=== PATIENT | female | born 1985 | race Two or more races ===

== ENCOUNTER 2018-02-01 07:12 | Inpatient (IN) | payer SELFPAY ==
[~2018-02-01] VITALS: Ht 160 cm; Wt 51.1 kg
[2018-02-01] MEDS ORDERED: PROPRANOLOL HCL10 MG PO (07:30)
[2018-02-01] MEDS ORDERED: INDERAL LA60 MG PO (07:31)
--- NOTE | 2018-02-01 11:40 | NUR ---
PT TO ROOM 123 AT THIS TIME. PT UP TO AMBUALTE INTO BATHROOM. TOELRATED ACTIVITY WELL. PT ALERT AND ORIENTED. SHE REPORTS MILD DIZZINESS WITH AMBULATION
[2018-02-01] MEDS ORDERED: REMERON15 MG PO (12:22)
--- NOTE | 2018-02-01 13:59 | NUR ---
PT RESTING IN BED WATCHING TV. VISITNG WITH FAMILY. REPORTS PAIN 09/03
--- NOTE | 2018-02-01 16:26 | NUR ---
PATIENT RESTING IN BED, FAMILY IN ROOM. CALL LIGHT IN REACH, NO OTHER NEEDS AT THIS TIME.
--- NOTE | 2018-02-01 16:54 | NUR ---
PT Kristina ADMIT THIS AM. SHE REPORTED PAIN 3/10 ON ADMISSION. WITH ADMISSION ORDERS FOR MG RIDERS, PO AND I.V. POTASSIUM REPLACEMENT. SENIOR SALES ASSOCIATE OF MORPHINE ORDER AND SET UP. PT HAS HAD FULL BED BATH AND SHOWER CAP. WILL SHOWER IN AM. WAS UNABLE TO SHOWER ON ADMISSION DUE TO NEED FOR ELECTROLYTE REPLACEMENT THERAPY. SHE HAS REPORTED GOOD PAIN CONTROL WITH SENIOR SALES ASSOCIATE IS USING APPROPRIATLY. SHE HAS FAMILY AT BEDSIDE SINCE ADMISSION. PT IS COOPERATIVE WITH CARE PLAN
--- NOTE | 2018-02-01 18:03 | NUR ---
Medications reconciled with patient interview
--- NOTE | 2018-02-01 19:41 | EKG ---
[facility] [address] [facility] [place] [address] Signed Normal sinus rhythm Normal ECG No previous ECGs available Confirmed by JUAN PABLO PATE MD ([id number]) on 02/01/2018 7:41:31 PM Electronically Signed By: JUAN PABLO PATE MD 02/01/181940 PATIENT NAME: DONOVAN MITCHELL Electrocardiogram DATE OF : 89 PHYSICIAN: JUAN PABLO PATE MD REPORT #: [id number] REPORT IS CONFIDENTIAL AND NOT TO BE RELEASED WITHOUT AUTHORIZATION
--- NOTE | 2018-02-01 21:16 | NUR ---
PATIENT THOUGHT SHE HEARD WORDS COMING FROM HER IV PUMP. I LISTENED THE PUMP AND EXPLAINED TO HER IS WAS JUST THE PUMPIMG MOTION OF THE MACHINE AND IT RESETS EVERY SO OFTE. SHE VERBALIZED UNDERSTANDING AND IS TAKING A WALK IN THE BENAVIDES WITH FAMILY. PAIN IS DOWN FROM 8/10 TO 5/10 WITH USE OF HER PHARMACY TECHNICIAN ASSISTANT PUMP.
--- NOTE | 2018-02-01 22:54 | NUR ---
RN MACIEL NOTIFIED RE PATIENT'S V/S IN PARTICULARLY BP.
--- NOTE | 2018-02-02 00:11 | NUR ---
PATIENT FEELS THAT HER PAIN MEDCATION IS TWO STRONG AND SHE IS NOT HAVING ANY PIN RIGHT NOW ANYWAY. DISCUUED WITH THE PATIENT THAT MAYBE THE REASON SHE IS NOT HAVING PAIN IS BECAUSE THE PAIN MEDICATIN IS WORKING WELL BUT IS SHE DOES NOT WANT TO TAKE SHE DOES NOT NEED TO PUSH THE BUTTON. SHE CAN CALL IF SHE HAS PAIN AND WE WILL LOOK AT ALTERNATIVES. SHE VERBALIZED UNDERSTANDING. CALL LIGHT IS IN REACH AND FAMILY IS AT BEDSIDE.
--- NOTE | 2018-02-02 02:13 | NUR ---
PATIENT REMAINS AWAKE WATCHING TV WITH HER FAMILY. PAIN 3/10 AND TOLERABE FOR THIS PATIENT AT THIS TIME AND DOES NOT WANT ANY PAIN MEDICATION. VS DONE AND ASSESSMENT DONE. PATIENT WI TRY TO GET SOME SLEEP. CALL LIGHT IN REACH.
--- NOTE | 2018-02-02 02:22 | NUR ---
pt c/o chest pressure, bp via monitor 163/113, manually 130/110, r 22, p 75 r arm, EKG normal, primary RN to notify Dr Goldstein, pt anxious, abd pain 3/10, no n/v, denies tingling of jaw or extremities, no raised nec k vein
--- NOTE | 2018-02-02 02:37 | NUR ---
CALLED DUE TO PATIENT'S INCREASEDE ANXIETY AND THE FEELING OF PRESSURE ON HER CHEST.EKG DONE,DISCUSSED THIS WITH . ORDER FOR HYDROXIZINE 25MG PO Q6 HOURS PRN FOR ANXIETY GIVEN. AND ORDER FOR 5/325MG NORCO ALSO GIVEN FOR PAIN. ORDERS PLACED AND AWAITING PHARMACY CONFIRMATION.
--- NOTE | 2018-02-02 02:51 | NUR ---
PATIENT GIVEN 25MG PO HYDROXYZINE FOR ANXIETY AND 1 PO NORCO 5/325MG FOR PAIN OF 5/10. WILL REASSESS IN 1 HOUR.
--- NOTE | 2018-02-02 04:01 | NUR ---
PATIENT HAS BEEN ABLE TO SLEEP. SHE SAYS THE PRESSURE IN HER CHEST IS GONE AND HER PAIN IS GONE ALSO. PATIENT IS GOING TO TRY AND GET SOME MORE SLEEP. CALL LIGHT IN REACH.
--- NOTE | 2018-02-02 05:53 | NUR ---
PATIENT TO HAVE MRCP THIS AM. POOJA ON FRONT OF CHART. PATIENT HAS SSLEPT INTERMITTENTLY THROUGH THE NIGHT LOTS OF FAMILY HOVERING IN THE ROOM ALL NIGHT. PATIENT HAS HAD EPISODES OF ANXIETY AND CHEST PRESSURE. THIS WAS RELIEVED WITH A DOSE OF HYDROXYZINE AND HER PAIN RELIEVED WITH 1 DOSE OF NORCO. PATIENT HAS NOT USED HER MS RADIOLOGICAL DEFENSE OFFICER SINCE THE BEGINING OF THE SHIFT SHE FEELS THIS MEDICATION MAKES HER SEE AND HERAR THINGS THAT ARE NOT HERE AND BELIEVES THE MEDICATION IS TO STRONG FOR HER. PATIENT HAS NOT GOT A LOT OF SLEEP LAST NIGHT SO CHARGE NURSE INFORMED ME IT WAS BETTER TO LET HER SLEEP SOME THIS MORNING RATHER THAN WAKING HER UP. PATIENT IS STILL NPO.
--- NOTE | 2018-02-02 06:32 | NUR ---
NOLVIA RODRIGUEZ NOTIFIED RE BP.
--- NOTE | 2018-02-02 06:46 | NUR ---
CALLED DR. PATE TO INFORM HIM PATIENT HAD BEEN ABLE TO GET SOME REST AFTER THE HYDROXYZINE AND THE NORCO, BUT THAT HER DIASTOLIC B/P WAS STILL GREATER THAN 100, CURRENT B/P=144/102. INFORMED THE THE ROOM SEEMS A LITTLE TENSE WITH ALL THE FAMILY MEMBERS COMING AND GOING IN THE ROOM AND WOULD LIKE TO HAVE VISITOR LIMITED SO THE PATIENT CAN GET SOME REST. WILL DISCUSS THIS WITH DAYSHIFT REPORT IS ABOUT TO START.
--- NOTE | 2018-02-02 08:00 | NUR ---
RECEIVED REPORT AT 0700, FOUND PT IN BED AWAKE. PT HAD NO PAIN AND NO N/V AT THAT TIME. PT ALSO HAD NO NEEDS.
--- NOTE | 2018-02-02 08:34 | NUR ---
PATIENT UP IN BED, FAMILY IN ROOM CALL LIGHT IN REACH NO OTHER NEEDS
--- NOTE | 2018-02-02 08:45 | NUR ---
PATIENT TO SURGERY. PARENTS AND DAUGHTER IN ROOM.
--- NOTE | 2018-02-02 10:00 | NUR ---
V/S ARE WDL SO FAR. ALL LOBES ARE CLEAR. ABD SOUNDS ARE PRESENT. PT HAS TENDERNESS UPPER AND LOWER MIDDLE ABDOMEN. BOWEL TONES ARE ACTIVE. PT DENIES PAIN AND N/V AT THIS TIME. DIET NOW IS CLEAR LIQUID. WAITING ON RESULTS FROM MRI. NO NEW CONCERNS AT THIS TIME.
--- NOTE | 2018-02-02 11:32 | NUR ---
PATIENT UP TO BR WITH FAMILY. VITALS AND I/OS CHARTED. CALL LIGHT IN REACH
--- NOTE | 2018-02-02 11:40 | NUR ---
PT AT THIS TIME IS NOT ABLE TO TOLERATE CLEAR LIQUIDS. MD PATE IS AWARE. FOR NOW WE ARE JUST DOING SIPS OF WATER. PRN NORCO WAS GIVEN. PAIN WAS 8/10.
--- NOTE | 2018-02-02 13:49 | NUR ---
PATIENT UP IN BED, FAMILY IN ROOM. VITALS AND I/OS CHARTED. DR PATE IN ROOM. CALL LIGHT IN REACH
--- NOTE | 2018-02-02 14:00 | NUR ---
PT AT THIS TIME IS RESTNG IN BED. ABD SOUNDS ARE PRESENT, PT DENIES N/V AND ONLY SOME PAIN. NO NEW CONCERNS AT THIS TIME.
--- NOTE | 2018-02-02 14:55 | EKG ---
[facility] [address] [facility] [place], [place] [address] Signed Normal sinus rhythm Normal ECG When compared with ECG of 01-FEB-2018 07:32, No significant change was found Confirmed by JUAN PABLO PATE MD ([id number]) on 02/02/2018 2:55:11 PM Electronically Signed By: JUAN PABLO PATE MD 02/02/18 1455 PATIENT NAME: DONOVAN MITCHELL Electrocardiogram DATE OF : 89 PHYSICIAN: JUAN PABLO PATE MD REPORT #: [id number] REPORT IS CONFIDENTIAL AND NOT TO BE RELEASED WITHOUT AUTHORIZATION
--- NOTE | 2018-02-02 15:29 | NUR ---
PT WALKED A FEW LARGE LAPS IN THE HALLWAY. I ASKED PT ABOUT ALCOHOL CONSUMPTION DUE TO THE FINDINGS ON HER MRI. MD PATE AWARE. PT STATED THAT SHE ONLY DRINKS ABOUT 2 MARGARITAS/WEEK. FATHER OF PT HOWEVER HAD LIVER ISSUES AT AGE 16. PT IS STILL DOING WELL PAINWISE. PT NOW IS BACK IN BED. WHEN PARENTS LEAVE, PT AND HER WILL TALK TO MD PATE. MD PATE IS AWARE.
--- NOTE | 2018-02-02 15:57 | NUR ---
PT IS IN BED RESTING.
--- NOTE | 2018-02-02 17:15 | NUR ---
PT OVERALL DID WELL IN REGARDS TO PAIN CONTROL THIS SHIFT. BP HAVE REMAINED ELEVATED SO FAR. ABD SOUNDS ARE PRESENT AND PT IS PASSING GAS. ABD IS TENDER TO TOUCH. PT WALKED THE HALLWAY THIS AFTERNOON. MD PATE WILL TALK TO PT ABOUT MRI FINDINGS SHORTLY. PT AT THIS TIME IS STILL NOT ABLE TO TOLERATE ANYTHING OTHER THAN WATER SO FAR.
--- NOTE | 2018-02-02 18:45 | NUR ---
PTS MOTHERS APROACHES THIS RN AND TELLS ME IN [place] THAT "WE RATHER HAVE A FEMALE NURSE TO TAKE CARE OF MY DAUGHTER". WILL TRY TO RESCHEDULE PT SCHEDULES ACCORDINGLY
--- NOTE | 2018-02-02 19:50 | NUR ---
CHARGE NURSE ROUNDING NOTE: VISITING WITH FAMILY, NO C/O PAIN. MOTHER STATED THAT PT" SEEMS MORE ANXIOUS AND ANGRY", PT CALM, NO ANGRY FACIAL OR VERBAL EXPRESSION NOTED VISUALLY OR PSHYSICALLY. IN BED, ARMS AT SIDE, HOLDING HER HUSBANDS HAND. IVF/INSURANCE AGENCY SALES MANAGER PATENT. NO C/O ABD PAIN STATED AT THIS TIME. CALL LIGHT AND FLUIDS WITHIN HANDS REACH
--- NOTE | 2018-02-02 20:19 | NUR ---
SHIFT REPORT RECEIEVD. PATIENT RESTING IN BED. FAMILY IN ROOM. NO NEEDS AT THIS TIME.
--- NOTE | 2018-02-02 21:45 | NUR ---
PATIENT APPEARED TO BE SLEEPING WHEN RN ENTERED ROOM. WOKE EASILY WITH VOICE. PATIENT DENIES PAIN. STATES SHE HAD MINOR PAIN AFTER EATING A DINNER OF JELLO AND JUICE. SHE DENIES NEEDS AT THIS TIME. IV FLUIDS INFUSING PER ORDER, SITE WNL. ABD IS MILDLY DISTENDED AND SLIGHTLY FIRM, TENDER TO THE TOUCH THROUGHOUT. BOWEL SOUNDS ACTIVE. PATIENT DECLINES TO USE HER SCDS, EDUCATION PROVIDED. PATIENT STATES SHE HAS BEEN UP AMBULATING REGULARLY. ORACLE APPLICATION ARCHITECT IN ROOM FOR VITALS.
--- NOTE | 2018-02-02 21:50 | NUR ---
PT'S VS AND I&O'S TAKEN AND DOCUMENTED. PT BP WAS HIGH, WILL INFORM RN. PT STATES NO OTHER NEEDS AT THIS TIME. INFORMED PT TO CALL IF SHE THINKS OF ANYTHING.
--- NOTE | 2018-02-02 23:00 | NUR ---
PATIENT RESTING IN BED. FAMILY AT BEDSIDE. PULSE OX 99% ON RA. IV FLUIDS INFUSING PER ORDER. CALL LIGHT IN REACH.
--- NOTE | 2018-02-03 02:03 | NUR ---
PATIENT RESTING IN BED. WOKE WHEN RN ENTERED ROOM. DENIES ANY PAIN OR NEEDS. IV FLUIDS INFUSING, SITE WNL. URINE IN HAT EMPTIED. FAMILY IN ROOM.
--- NOTE | 2018-02-03 04:15 | NUR ---
PATIENT RESTING SOUNDLY. O2 SAT 98% ON RA. CALL LIGHT IN REACH.
--- NOTE | 2018-02-03 06:15 | NUR ---
PATIENT RESTING IN BED. DENIES PAIN. ABD SOFT, TENDER, BOWEL SOUNDS ACTIVE. DENIES ANY NEEDS. IV FLUIDS IN FUSING PER ORDER. CALL LIGHT IN REACH.
--- NOTE | 2018-02-03 06:37 | NUR ---
VITALS AND I&OS DONE AND CHARTED. BEDSIDE TABLE AND CALL LIGHT WITHIN REACH. NOTIFIED HER RN JACQUE OF HIGH BLOOD PRESSURE. PT NEEDS NOTHING ELSE AT THIS TIME.
--- NOTE | 2018-02-03 06:41 | NUR ---
PATIENT SLEPT WELL DURING THE NIGHT. DENIED PAIN. PIN FEATHER MACHINE OPERATOR ORDERED BUT NOT FREQUENTLY USED. PATIENT TOLERATING CLEAR LIQUIDS. INDEPENDENT IN THE ROOM. URINE OUTPUT QS, NO BM SINCE 01-30-18. ABD TENDER, MILDLY DISTENDED, BOWEL SOUNDS ACTIVE. FAMILY IN ROOM. IV FLUIDS PER ORDER.
--- NOTE | 2018-02-03 06:59 | NUR ---
PATIENT REPORTS THAT SHE HAD A SMALL/MEDIUM BM LAST NIGHT THAT WAS HARD. SHE FEELS CONSTIPATED AND IS REQUESTING A STOOL SOFTENER.
--- NOTE | 2018-02-03 07:49 | NUR ---
PATIENT UP IN BED, THIS RABBET OPERATOR SET HER UP FOR A SHOWER AFTER BREAKFAST. CALL LIGHT IN REACH
--- NOTE | 2018-02-03 08:00 | NUR ---
RECEIVED REPORT AT 0700, FOUND PT IN BED AWAKE. PT WAS IN GOOD SPIRITS. PT IS ABLE TO TOLERATE CLEAR LIQUID DIET AND DENIES PAIN AND N/V AT THIS TIME.
--- NOTE | 2018-02-03 09:33 | NUR ---
PATEINT UP IN ROOM, JUST SHOWERED. IN ROOM. LINENS CHANGED. GARBAGE EMPTIED. VITALS AND I/OS CHARTED.
--- NOTE | 2018-02-03 10:00 | NUR ---
PT IS DOING WELL. ABD SOUNDS ARE PRESENT, PT HAD A BM LAST NIGHT. NO NEW ISSUES NOTED.
--- NOTE | 2018-02-03 12:00 | NUR ---
PT TOLERATED FULL LIQUID DIET WELL. PT DENIES PAIN, N/V. NO NEW CONCERNS AT THIS TIME.
[2018-02-03] MEDS ORDERED: OXYCODONE HCL5 MG PO (13:01)
--- NOTE | 2018-02-03 13:59 | NUR ---
DISCHARGE VITALS CHARTED. IV D/C. PHARMACY IN ROOM
--- NOTE | 2018-02-03 14:32 | NUR ---
PT DRESSED WITH PRESENT WAITING FOR DC ORDERS. PT STATED THAT SHE IS VERY PLEASED WITH CARE AT [facility], AND HER CHILD WAS BORN AT [facility]. SHE NOW LIVES IN [place]-HERE FOR VISIT. ENCOURAGED THEM AND EXTENDED A BLESSING. WILL FOLLOW NEEDED
== END 2018-02-03 14:20 | disposition home or self-care (01) | DRG 440 ==
LOC: ED 07:12 → MS 11:07
PROVIDERS: ADMIT Internal Medicine
DX: K85.90 Acute pancreatitis without necrosis or infection, unspecified (principal); K76.0 Fatty (change of) liver, not elsewhere classified; R73.9 Hyperglycemia, unspecified; E87.6 Hypokalemia; E83.42 Hypomagnesemia; S06.0X9S Concussion with loss of consciousness of unspecified duration, sequela; G44.309 Post-traumatic headache, unspecified, not intractable; F07.81 Postconcussional syndrome; F41.9 Anxiety disorder, unspecified
CPT/HCPCS: 36415; 74183; 76705; 80053; 80061; 81001; 82607; 82746; 83036; 83605; 83690; 83735; 84443; 84703; 85025; 86038; 86255; 86376; 86704; 86706; 86803; 87340; 93005; 93010; 94762; 96361; 96374; 96375; 99285; A9579; J1170; J2270; J2405; J3475; J7030; J7120; Q0177